=== PATIENT | female | born 1965 | race African-American/Black ===

== ENCOUNTER 2019-08-15 14:07 | Emergency (ER) | payer OTHER ==
[~2019-08-15] VITALS: Ht 149.9 cm; Wt 70.3 kg
[~2019-08-15 14:07] MED LIST: ACCUNEB SO1.25 MG/1 INH; ADVAIR 500-501 EACH INH; ALLERGY RELIEF10 M5 PO; AMITRIPTYLINE PO; APAP/CODEINE ELI5 M1 PO; AZITHROMYCIN 2250 MG PO; BACTRIM DS TAB1 EACH PO; BYSTOLIC 5 MG5 M1 PO; CLARINEX-D 241 EACH PO; CLONAZEPAM 0.50.5 M1 PO; CLONAZEPAM 1 MG1 M1 PO; DYMISTA NASAL S23 GM SPRAY; FLONASE 0.05%50 MCG NS; GENTAMICIN IRRIG; HYDROCHLOROTHIA25 M1 PO; IBUPROFEN 600600 M1 PO; IBUPROFEN 800800 MG PO; LORTAB 5-500 T1 EAC1 PO; NORCO 5-325 TA1 EACH PO; PHENERGAN-CODE120 ML PO; PREDNISONE 20 M20 M1 PO; PROTONIX40 M2 PO; PROVENTIL HFA6.7 G1 INH; REMERON15 MG PO; SINGULAIR 10 MG10 M1 PO; SPRINTEC1 EACH PO; TESSALON PERLE100 MG PO; XOLAIR INJECTION; ZPAK PO; [UNRECOGNIZED DRUG - OTHER] IRRIG
[2019-08-15] MEDS ORDERED: PNV 29-1 TABLE1 EACH PO (14:41)
[2019-08-15 15:51] LABS: URINE BILIRUBIN NEGATIVE (Negative); URINE BLOOD NEGATIVE (Negative); URINE CLARITY CLEAR; URINE COLOR YELLOW; URINE GLUCOSE-RANDOM* NEGATIVE (Negative); URINE KETONES NEGATIVE (Negative); URINE NITRITE-REFLEX NEGATIVE (Negative); URINE PROTEIN (DIPSTICK) NEGATIVE (Negative); URINE UROBILINOGEN 0.2 E.U./dl (0.2-1.0)
[2019-08-15 15:56] LABS: URINE LEUKOCYTES-REFLEX 1+ (Negative)
[2019-08-15 16:10] LABS: SQUAMOUS 4-10 Moderate /LPF (0-3)
[2019-08-15 16:11] VITALS: BP 145/87
[2019-08-15 16:11] LABS: BACTERIA-REFLEX 1-9 Few /HPF (None Seen); CASTS None Seen /LPF (None Seen); CRYSTALS None Seen /LPF (None Seen); URINE RBC None Seen /HPF (0-2); URINE WBC-REFLEX 0-5 Rare /HPF (0-5)
--- NOTE | 2019-08-16 08:18 | EKG ---
[facility] [place] [address] ELECTROCARDIOGRAM REPORT Name: GRIFFIN HARRINGTON Room #: DEP [facility] CAMPUSDayna[facility] [id number] Admission: 08/15/19 Attend Phys: Discharge: 08/15/19 Date of : 63 Report #: [id number] THIS REPORT FOR: cc: Jadyn Wallace Christine L. DO Lundgren,Roel Whaley MD [facility] THIS REPORT FOR: //name// [facility] ED Test Date: 2019-08-15 Test Time: 14:22:13 Pat Name: GRIFFIN HARRINGTON Department: Room: Gender: F Travel Guide: [facility] : 1965 Requested By: Lainey Givens Order Number: [id number] MD: Roel Arriola Measurements Intervals [place] Rate: 76 P: AR: 147 QRS: -1 QRSD: 90 T: 16 QT: 407 QTc: 458 Interpretive Statements Sinus rhythm Normal tracing Compared to ECG 01/08/2011 20:33:35 No significant change was found Electronically Signed On 08-16-2019 8:17:54 CDT by Roel Arriola [email or web address] <ELECTRONICALLY SIGNED> By: Roel Arriola MD, FACC 08/16/19 0817 1422 142 Roel Arriola MD, [facility] /EPI
== END 2019-08-15 16:12 | disposition home or self-care (01) ==
LOC: ER 14:07
PROVIDERS: Physician Assistant
DX: F41.9 Anxiety disorder, unspecified (principal); K21.9 Gastro-esophageal reflux disease without esophagitis; J45.909 Unspecified asthma, uncomplicated; Z87.891 Personal history of nicotine dependence; Z79.899 Other long term (current) drug therapy; Z95.1 Presence of aortocoronary bypass graft